=== PATIENT | female | born 1985 | race American Indian/Alaskan Native ===

== ENCOUNTER 2017-02-18 05:56 | Day surgery (SDC) | payer BC ==
--- NOTE | 2017-02-17 12:54 | Anesthesia Consultation ---
Anesthesia Consult and Med Hx Date of service: 02/18/17 - Airway Anesthetic Teeth Evaluation: Good ROM Head & Neck: Adequate Mental/Hyoid Distance: Adequate Mallampati Class: Class II Intubation Access Assessment: Good - Pulmonary Exam CTA: Yes - Cardiac Exam Cardiac Exam: RRR - Pre-Operative Health Status ASA Pre-Surgery Classification: ASA3 Proposed Anesthetic Plan: General, MAC - Pulmonary Hx Asthma: Yes SOB: No - Cardiovascular System Hx Hypertension: Yes (NEW ONSET; PCP PLACED ON ATENOLOL 02/16/17) - Central Nervous System Hx Psychiatric Problems: No - Endocrine Hx Insulin Dependent Diabetes: Yes Hx Hypothyroidism: Yes ("MY PCP SAID THIS IS CAUSING MY PULSE TO GO UP") - Other Systems Hx Alcohol Use: No Hx Substance Use: No Hx Cancer: No
[2017-02-18] MEDS ORDERED: VERSED IV NR (06:00)
[2017-02-18] MEDS ORDERED: NACL 0.9% 1000 ML 1,000 ML IV SCH (06:00)
[2017-02-18] MEDS ORDERED: NACL BACTERIOSTATIC INFILTRATI ONE (06:46)
[2017-02-18] MEDS ORDERED: VANCOMYCIN/NS 1 GM/250 ML 1 GM/250 ML BAG IV NR (07:00)
[2017-02-18] MEDS ORDERED: MARCAINE 0.25% INFILTRATI ONE ×2 (07:04→07:30)
[2017-02-18] MEDS ORDERED: XYLOCAINE 1%/ EPI 1:100,000 INFILTRATI ONE ×2 (07:05→07:30)
[2017-02-18] MEDS ORDERED: VERSED IV ONE (07:06)
[2017-02-18] MEDS ORDERED: DILAUDID ONE (07:07)
[2017-02-18] MEDS ORDERED: DIPRIVAN 10 MG/ML IV ONE ×2 (07:07→07:47)
[2017-02-18] MEDS ORDERED: XYLOCAINE MPF 2% ONE (07:07)
[2017-02-18] MEDS ORDERED: NACL 0.9% IR ONE (07:21)
--- NOTE | 2017-02-18 07:24 | Anesthesia Day of Surgery ---
Anesthesia Day of Surgery - Day of Surgery Patient Examined: Yes Patient H&P Reviewed: Yes Patient is NPO: Yes Beta Blockers: Yes
--- NOTE | 2017-02-18 08:03 | Post Operative Note ---
Pre-op diagnosis: Osteomyelitis right second toe Post-op diagnosis: same Findings: See operative report. Procedure: Distal symes amputation second toe right side. Anesthesia: MAC Surgeon: DEZ GALLARDO Estimated blood loss: minimal Pathology: list (deep cultures) Specimen disposition: to lab Condition: stable Disposition: same day
[2017-02-18] MEDS ORDERED: PERCOCET 5/325 PO PRN (08:04)
[2017-02-18] MEDS ORDERED: DILAUDID IV PRN (08:04)
--- NOTE | 2017-02-18 08:04 | Discharge Summary ---
Short Stay Discharge Plan Activity: no restrictions Weight Bearing Status: Weight Bear as Tolerated Diet: regular Wound: keep clean and dry Follow up with: TANVIR CARRERO MD [Primary Care Provider] - 7 Days
[2017-02-18] MEDS ORDERED: BENADRYL IV PRN (08:57)
--- NOTE | 2017-02-18 09:25 | Post Anesthesia Evaluation ---
- Post Anesthesia Evaluation Patient Participated: Yes Airway Patent: Yes Stable Respiratory Function: Yes Nausea/Vomiting: No Temp > 96.8F: Yes Pain Manageable: Yes Adequeate Hydration: Yes Anesthesia Complications: No Block Receding Appropriately: Not Applicable Patient on Ventilator: No
[2017-02-18 09:31] VITALS: BP 121/91
--- NOTE | 2017-02-18 17:29 | Operative Report ---
SURGEON: Nadeem Betancur DPM AGILE TEST LEAD: None. PREOPERATIVE DIAGNOSIS: Osteomyelitis, right second toe. POSTOPERATIVE DIAGNOSIS: Osteomyelitis, right second toe. PROCEDURE: Distal Syme's second toe, right side. ANESTHESIA: Monitored anesthesia care with local anesthetic consisting of 5 mL of 1:1 mixture of 2% lidocaine with epinephrine and 0.25% Marcaine plain. HEMOSTASIS: Epinephrine local 1:200,000. Pneumatic calf tourniquet at 250 mmHg x 11 minutes. ESTIMATED BLOOD LOSS: Less than 1 mL. MATERIALS: None. PATHOLOGY: Distal portion second toe sent for gross and deep wound cultures, aerobic and anaerobic taken. COMPLICATIONS: None. OPERATIVE SUMMARY: On this date, the patient was deemed an appropriate surgical candidate, brought to the operating room and placed on the operating table in supine position. Following induction of adequate intravenous anesthesia, the right second toe was blocked with above-mentioned local mixture. Tourniquet was applied after exsanguination was inflated. The foot, ankle, and leg were prepped and draped in the usual sterile fashion. The following procedure was then carried out. DISTAL SYME'S AMPUTATION SECOND TOE, RIGHT FOOT: Attention was directed to the dorsal distal aspect of the right second toe where two converging semielliptical incisions were carried out in a fish-mouth fashion. Dissection was carried through the skin layer down to the level of superficial fascia with care to direct neurovascular structures. Use of electrocautery deemed necessary for surgical hemostasis. This was carried down to the level of the distal phalanx. This entire distal segment was then excised in toto. Inspection of the distal portion of the middle phalanx revealed intact cartilage. No evidence of osteomyelitic type changes. There was no necrosis and no ascending infection from this point. The wound was flushed with copious amounts of normal sterile saline. Deep wound cultures were obtained. Closure was then carried out with simple interrupted sutures of nylon around the perimeter. Betadine application was applied followed by dry sterile dressing. The tourniquet was deflated, normal capillary refill returned to the remaining toes. The patient tolerated the above procedures and anesthesia well without complications. Vital signs stable throughout. She will be discharged with home going instructions to keep the dressing clean, dry and intact. Follow up in the office in 1 week. JOB# [id number] RBW/DANIELLE
== END 2017-02-18 09:46 | disposition home or self-care (01) ==
LOC: OR 05:56
PROVIDERS: ATTEND Podiatrist Foot & Ankle Surgery
DX: M86.8X7 Other osteomyelitis, ankle and foot (principal); J45.909 Unspecified asthma, uncomplicated; I10 Essential (primary) hypertension; E11.9 Type 2 diabetes mellitus without complications; E03.9 Hypothyroidism, unspecified
CPT/HCPCS: 28825; 81025; 82962; 87075; 87116; 88305; 88311; 93005; 93010; J1170; J1200; J2250; J2704; J3370; J7030

== ENCOUNTER 2018-02-12 23:52 | Emergency (ER) | payer BC | END 2018-02-13 00:15 | disposition left against medical advice (07) | LOC: ED 23:52 | DX: Z53.21 Procedure and treatment not carried out due to patient leaving prior to being seen by health care provider (principal) ==

== ENCOUNTER 2018-02-15 13:05 | Outpatient (CLI) | payer BC ==
[2018-02-15] MEDS ORDERED: XYLOCAINE TOPICAL 4% TP ONE ×2 (13:36→13:38)
== END 2018-02-15 13:06 | disposition home or self-care (01) ==
LOC: WOUND 13:05
PROVIDERS: ATTEND Surgery
DX: T87.89 Other complications of amputation stump (principal); E11.9 Type 2 diabetes mellitus without complications; I10 Essential (primary) hypertension; Z89.411 Acquired absence of right great toe; Y83.5 Amputation of limb(s) as the cause of abnormal reaction of the patient, or of later complication, without mention of misadventure at the time of the procedure
CPT/HCPCS: 11042; 97605; G0463

== ENCOUNTER 2018-02-22 10:04 | Outpatient (CLI) | payer BC ==
[2018-02-22] MEDS ORDERED: XYLOCAINE TOPICAL 4% TP ONE (12:00)
== END 2018-02-22 10:05 | disposition home or self-care (01) ==
LOC: WOUND 10:04
PROVIDERS: ATTEND Surgery
DX: T87.89 Other complications of amputation stump (principal); E11.9 Type 2 diabetes mellitus without complications; I10 Essential (primary) hypertension; Y83.5 Amputation of limb(s) as the cause of abnormal reaction of the patient, or of later complication, without mention of misadventure at the time of the procedure

== ENCOUNTER 2018-02-24 13:24 | Outpatient (CLI) | payer BC | END 2018-02-24 13:25 | disposition home or self-care (01) | LOC: WOUND 13:24 | PROVIDERS: ATTEND Nurse Practitioner | DX: T87.89 Other complications of amputation stump (principal); E11.9 Type 2 diabetes mellitus without complications; I10 Essential (primary) hypertension; Z89.411 Acquired absence of right great toe; Y83.5 Amputation of limb(s) as the cause of abnormal reaction of the patient, or of later complication, without mention of misadventure at the time of the procedure | CPT/HCPCS: 99213; G0463 ==

== ENCOUNTER 2018-03-01 08:56 | Outpatient (CLI) | payer BC ==
[2018-03-01] MEDS ORDERED: XYLOCAINE TOPICAL 4% TP ONE (09:22)
== END 2018-03-01 08:57 | disposition home or self-care (01) ==
LOC: WOUND 08:56
PROVIDERS: ATTEND Surgery
DX: T87.89 Other complications of amputation stump (principal); E11.9 Type 2 diabetes mellitus without complications; I10 Essential (primary) hypertension; Z89.412 Acquired absence of left great toe; Z89.411 Acquired absence of right great toe; Y83.5 Amputation of limb(s) as the cause of abnormal reaction of the patient, or of later complication, without mention of misadventure at the time of the procedure

== ENCOUNTER 2018-03-08 10:58 | Outpatient (CLI) | payer BC ==
[2018-03-08] MEDS ORDERED: XYLOCAINE TOPICAL 4% TP ONE ×2 (11:11→11:17)
== END 2018-03-08 10:59 | disposition home or self-care (01) ==
LOC: WOUND 10:58
PROVIDERS: ATTEND Surgery
DX: T87.89 Other complications of amputation stump (principal); E11.9 Type 2 diabetes mellitus without complications; I10 Essential (primary) hypertension; Z89.412 Acquired absence of left great toe; Z89.411 Acquired absence of right great toe; Y83.5 Amputation of limb(s) as the cause of abnormal reaction of the patient, or of later complication, without mention of misadventure at the time of the procedure
CPT/HCPCS: 97605

== ENCOUNTER 2018-03-15 09:03 | Outpatient (CLI) | payer BC ==
[2018-03-15] MEDS ORDERED: XYLOCAINE TOPICAL 4% TP ONE (09:26)
== END 2018-03-15 09:04 | disposition home or self-care (01) ==
LOC: WOUND 09:03
PROVIDERS: ATTEND Surgery
DX: T87.89 Other complications of amputation stump (principal); I10 Essential (primary) hypertension; Z89.411 Acquired absence of right great toe; Y83.5 Amputation of limb(s) as the cause of abnormal reaction of the patient, or of later complication, without mention of misadventure at the time of the procedure

== ENCOUNTER 2018-03-22 09:05 | Outpatient (CLI) | payer BC ==
[2018-03-22] MEDS ORDERED: XYLOCAINE TOPICAL 4% TP ONE ×2 (09:08→09:17)
== END 2018-03-22 09:06 | disposition home or self-care (01) ==
LOC: WOUND 09:05
PROVIDERS: ATTEND Surgery
DX: T87.89 Other complications of amputation stump (principal); I10 Essential (primary) hypertension; E11.9 Type 2 diabetes mellitus without complications; Z89.411 Acquired absence of right great toe; Y83.5 Amputation of limb(s) as the cause of abnormal reaction of the patient, or of later complication, without mention of misadventure at the time of the procedure

== ENCOUNTER 2018-03-29 09:05 | Outpatient (CLI) | payer BC ==
[2018-03-29] MEDS ORDERED: XYLOCAINE TOPICAL 4% TP ONE ×2 (09:47→09:59)
== END 2018-03-29 09:06 | disposition home or self-care (01) ==
LOC: WOUND 09:05
PROVIDERS: ATTEND Surgery
DX: T87.89 Other complications of amputation stump (principal); E11.621 Type 2 diabetes mellitus with foot ulcer; L97.521 Non-pressure chronic ulcer of other part of left foot limited to breakdown of skin; I10 Essential (primary) hypertension; Z89.411 Acquired absence of right great toe; Y83.5 Amputation of limb(s) as the cause of abnormal reaction of the patient, or of later complication, without mention of misadventure at the time of the procedure
CPT/HCPCS: 99214; G0463

== ENCOUNTER 2018-04-05 09:05 | Outpatient (CLI) | payer BC ==
[2018-04-05] MEDS ORDERED: XYLOCAINE TOPICAL 4% TP ONE ×2 (09:23→14:57)
== END 2018-04-05 09:06 | disposition home or self-care (01) ==
LOC: WOUND 09:05
PROVIDERS: ATTEND Surgery
DX: T87.89 Other complications of amputation stump (principal); E11.621 Type 2 diabetes mellitus with foot ulcer; L97.521 Non-pressure chronic ulcer of other part of left foot limited to breakdown of skin; I10 Essential (primary) hypertension; Z89.411 Acquired absence of right great toe; Y83.5 Amputation of limb(s) as the cause of abnormal reaction of the patient, or of later complication, without mention of misadventure at the time of the procedure

== ENCOUNTER 2018-04-12 09:01 | Outpatient (CLI) | payer BC ==
[2018-04-12] MEDS ORDERED: XYLOCAINE TOPICAL 4% TP ONE ×2 (09:34→14:00)
== END 2018-04-12 09:02 | disposition home or self-care (01) ==
LOC: WOUND 09:01
PROVIDERS: ATTEND Surgery
DX: T87.89 Other complications of amputation stump (principal); E11.621 Type 2 diabetes mellitus with foot ulcer; L97.521 Non-pressure chronic ulcer of other part of left foot limited to breakdown of skin; I10 Essential (primary) hypertension; Z89.411 Acquired absence of right great toe; Y83.5 Amputation of limb(s) as the cause of abnormal reaction of the patient, or of later complication, without mention of misadventure at the time of the procedure

== ENCOUNTER 2018-04-19 09:16 | Outpatient (CLI) | payer BC ==
[2018-04-19] MEDS ORDERED: XYLOCAINE TOPICAL 4% TP ONE ×2 (09:17→09:29)
== END 2018-04-19 09:17 | disposition home or self-care (01) ==
LOC: WOUND 09:16
PROVIDERS: ATTEND Surgery
DX: T87.89 Other complications of amputation stump (principal); I10 Essential (primary) hypertension; Z89.411 Acquired absence of right great toe; Y83.5 Amputation of limb(s) as the cause of abnormal reaction of the patient, or of later complication, without mention of misadventure at the time of the procedure

== ENCOUNTER 2018-04-26 09:04 | Outpatient (CLI) | payer BC ==
[2018-04-26] MEDS ORDERED: XYLOCAINE TOPICAL 4% TP ONE ×2 (09:25→14:58)
== END 2018-04-26 09:05 | disposition home or self-care (01) ==
LOC: WOUND 09:04
PROVIDERS: ATTEND Surgery
DX: T87.89 Other complications of amputation stump (principal); E11.621 Type 2 diabetes mellitus with foot ulcer; L97.521 Non-pressure chronic ulcer of other part of left foot limited to breakdown of skin; I10 Essential (primary) hypertension; Z89.411 Acquired absence of right great toe; Y83.5 Amputation of limb(s) as the cause of abnormal reaction of the patient, or of later complication, without mention of misadventure at the time of the procedure

== ENCOUNTER 2018-05-02 09:02 | Outpatient (CLI) | payer BC | END 2018-05-02 09:03 | disposition home or self-care (01) | LOC: WOUND 09:02 | PROVIDERS: ATTEND Surgery | DX: T87.89 Other complications of amputation stump (principal); E11.621 Type 2 diabetes mellitus with foot ulcer; L97.521 Non-pressure chronic ulcer of other part of left foot limited to breakdown of skin; I10 Essential (primary) hypertension; Z89.411 Acquired absence of right great toe; Y83.5 Amputation of limb(s) as the cause of abnormal reaction of the patient, or of later complication, without mention of misadventure at the time of the procedure | CPT/HCPCS: 99213; G0463 ==